=== PATIENT | male | born 1970 ===

== ENCOUNTER 2017-06-05 19:16 | Emergency (ER) | payer SELFPAY ==
[2017-06-05 19:38] VITALS: TEMP 97.5; O2SAT 96
--- NOTE | 2017-06-05 20:21 | C.PDOC ---
History Of Present Illness 46 y/o male with a PMHx of vertigo, presents with room-spinning sensation for 1 day, worsened with head movement. Patient states he ran out of meclizine 1 month ago and today developed exacerbation of his typical vertigo symptoms. Also reports nausea with head movements. Denies any headache, weakness, numbness , or photophobia. Time Seen by Provider: 06/05/17 19:49 Chief Complaint (Nursing): Dizziness/Lightheaded History Per: Patient History/Exam Limitations: no limitations Onset/Duration Of Symptoms: Days (x1) Current Symptoms Are (Timing): Still Present Past Medical History Reviewed: Historical Data, Nursing Documentation, Vital Signs Vital Signs: Last Vital Signs Temp 97.5 F L 06/05/17 19:31 Pulse 70 06/05/17 20:36 Resp 19 06/05/17 20:36 BP 122/80 06/05/17 20:36 Pulse Ox 96 06/05/17 20:36 - Medical History PMH: Chronic Pain Other PMH: Vertigo Surgical History: No Surg Hx Family History: States: Unknown Family Hx - Social History Hx Alcohol Use: No Hx Substance Use: No - Immunization History Hx Tetanus Toxoid Vaccination: No Hx Influenza Vaccination: No Hx Pneumococcal Vaccination: No Review Of Systems Except As Marked, All Systems Reviewed And Found Negative. Eyes: Negative for: Other (Photophobia) Neurological: Positive for: Dizziness (room spinning). Negative for: Weakness, Numbness, Headache Physical Exam - Physical Exam Appears: Non-toxic, No Acute Distress Skin: Warm, Dry, No Rash Head: Atraumatic, Normacephalic, Other (reports dizziness with head movement) Eye(s): bilateral: Normal Inspection Ear(s): Bilateral: Normal Nose: Normal Oral Mucosa: Moist Neck: Normal ROM, Supple Chest: Symmetrical Cardiovascular: Rhythm Regular, No Murmur Respiratory: Normal Breath Sounds, No Accessory Muscle Use Extremity: Bilateral: Atraumatic, Normal Color And Temperature, Normal ROM Neurological/Psych: Oriented x3, Normal Speech, Normal Cranial Nerves, Normal Motor, Normal Sensation, No Other (focal deficits) Gait: Steady ED Course And Treatment O2 Sat by Pulse Oximetry: 96 (RA) Pulse Ox Interpretation: Normal Progress Note: Meclizine PO given in the ED. Patient is medically stable, no neuro deficits. Advised to follow up with primary doctor in 2-3 days Disposition Counseled Patient/Family Regarding: Diagnosis, Need For Followup, Rx Given - Disposition Referrals: [facility] [Outside] Disposition: HOME/ ROUTINE Disposition Time: 20:18 Condition: STABLE Additional Instructions: Take meds as directed Return to ER if worse Prescriptions: Meclizine [Meclizine*] 25 mg PO Q6 PRN #30 tab PRN Reason: Dizziness Instructions: Vertigo (a Type of Dizziness) (DC) Forms: [employer] (Kinyarwanda), Work Excuse Print Language: POLISH - POA Present On Arrival: None - Clinical Impression Clinical Impression: Vertigo - PA / LINE ANALYST / Resident Statement MD/DO has reviewed & agrees with the documentation as recorded. - Scribe Statement The provider has reviewed the documentation as recorded by the Scribe (Sulema Ordaz) All medical record entries made by the Scribe were at my direction and personally dictated by me. I have reviewed the chart and agree that the record accurately reflects my personal performance of the history, physical exam, medical decision making, and the department course for this patient. I have also personally directed, reviewed, and agree with the discharge instructions and disposition.
[2017-06-05 20:37] VITALS: BP 122/80; PULSE 70; RESP 19
== END 2017-06-05 20:44 | disposition home or self-care (01) ==
LOC: C.ER 19:16
DX: R42 Dizziness and giddiness (principal)